=== PATIENT | male | born 1990 | race Caucasian/White ===

== ENCOUNTER 2017-11-04 02:28 | Emergency (ER) | payer SELFPAY ==
[2017-11-04 02:30] VITALS: BP 115/78
[2017-11-04] MEDS ORDERED: ONDANSETRON 4 MG ODT TABDP SL ONE (02:30)
--- NOTE | 2017-11-04 02:38 | ER Report ---
History and Physical Time Seen By MD: 02:31 Hx. of Stated Complaint: PATIENT BROUGHT IN BY [employer] FOR GROUP HOME CLEARENCE, PATIENT FOUND LAYING RUNK ON SIDE WALK VOMITING. HPI/ROS CHIEF COMPLAINT: Medical clearance HISTORY OF PRESENT ILLNESS: Patient is a 26-year-old male who is brought in by [place] [employer] for medical clearance. Patient was found lying on the sidewalk vomiting. Admits to drinking quite a bit of alcohol this evening. Patient denies hitting his head. Past medical history for spinal fusion in the past. REVIEW OF SYSTEMS: Respiratory: No cough, no dyspnea. Cardiovascular: No chest pain, no palpitations. Gastrointestinal: Vomiting, denies abdominal pain Musculoskeletal: No back pain. Allergies: Coded Allergies: morphine (Verified Allergy, Unknown, 11/04/17) Home Meds No Active Prescriptions or Reported Meds Past Medical/Surgical History History of back surgery Physical Exam General Appearance: The patient is alert, has no immediate need for airway protection and no current signs of toxicity. He shouldn't is acutely intoxicated Eyes: Pupils equal and round no injection. Fatigable horizontal nystagmus Respiratory: Chest is non tender, lungs are clear to auscultation. Cardiac: regular rate and rhythm Gastrointestinal: Abdomen is soft and non tender, no masses, bowel sounds normal. Musculoskeletal: Neck: Neck is supple and non tender. Extremities have full range of motion and are non tender. Skin: No rashes or lesions. Medical Decision Making ED Course/Re-evaluation ED Course 11/04/2017 2:36:40 am patient medically cleared at this time; he was offered antinausea medicines which he refused. Decision to Disposition Date: Nov 04, 2017 Decision to Disposition Time: 02:36 Depart Departure Impression: Primary Impression: Alcohol intoxication Condition: Improved Disposition: HOME OR SELF-CARE New Scripts No Active Prescriptions or Reported Meds Patient Instructions: Alcohol Intoxication (ED) Problem Qualifiers Primary Impression: Alcohol intoxication Complication of substance-induced condition: uncomplicated Qualified Codes: F10.920 - Alcohol use, unspecified with intoxication, uncomplicated MONSERRAT VILLA MD Nov 04, 2017 02:37
== END 2017-11-04 02:43 ==
LOC: ER 02:30
DX: F10.920 Alcohol use, unspecified with intoxication, uncomplicated (principal)
CPT/HCPCS: 99281

== ENCOUNTER 2017-12-02 09:04 | Emergency (ER) | payer OTHER ==
--- NOTE | 2017-12-02 09:11 | ER Report ---
History and Physical Time Seen By MD: 09:11 Hx. 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 PAIN TO FOREARM. HPI/ROS CHIEF COMPLAINT: forearm pain HISTORY OF PRESENT ILLNESS: This is a 26 year old male. He injured his left forearm yesterday afternoon when working. Was running an auger, put the equipment back down in the hole, and started up prior to being set, twisting his left arm severely. Had severe pain. No numbness. Normal motor function. No pain in elbow or wrist. Allergies: Coded Allergies: tramadol (Verified Allergy, Mild, CONSTIPATION, 12/02/17) morphine (Verified Allergy, Unknown, 11/04/17) Home Meds No Active Prescriptions or Reported Meds Reviewed Nurses Notes: Yes Constitutional Vital Sign - Last 24 Hours 12/02/17 12/02/17 09:07 10:37 Temp 97.6 Pulse 75 65 Resp 18 18 B/P (MAP) 133/82 123/86 (98) Pulse Ox 95 94 O2 Delivery Room Air Physical Exam General: Alert, no acute distress. Musculoskeletal: Pain in mid forearm over ulna. No pain in elbow. No pain in wrist. Skin: No rashes or skin breakdown. Cardiovascular: Normal pulses and cap refill. Neuro: Normal sensation. Medical Decision Making EKG/Imaging Imaging FOREARM LEFT Indication: Pain after injury Comparison: None available Findings: Two views of the left forearm show no evidence of fracture, dislocation, or acute osseous abnormality. There is no focal soft tissue abnormality. No evidence of radiopaque foreign body. IMPRESSION: 1.No acute osseous abnormality left forearm Report Dictated By: Alek Moore at 12/02/2017 10:21 AM ED Course/Re-evaluation ED Course Reviewed results with the patient and discussed conservative measures. Decision to Disposition Date: Dec 02, 2017 Decision to Disposition Time: 10:29 Depart Departure Latest Vital Signs Vital Signs Date Time Temp Pulse Resp B/P (MAP) Pulse Ox O2 Delivery O2 Flow Rate FiO2 12/02/17 10:37 65 18 123/86 (98) 94 12/02/17 09:07 97.6 Room Air Impression: Primary Impression: Strain of forearm, left Condition: Stable Disposition: HOME OR SELF-CARE New Scripts No Active Prescriptions or Reported Meds Patient Instructions: Muscle Strain (ED) Additional Instructions: Ibuprofen 200mg over the counter tablets, take 4 tablets three times a day with food. Apply ice 20 minutes every 1-2 hours while awake. An DIXIE wrap can be used for compression to help reduce swelling. Rest the injured area, keep it elevated while at rest. Begin gentle range of motion exercises. Okay to use the arm, let pain be your guide and be careful not to overuse it for the next few days till it is feeling better. Problem Qualifiers Primary Impression: Strain of forearm, left Encounter type: initial encounter Qualified Codes: S56.912A - Strain of unspecified muscles, fascia and tendons at forearm level, left arm, initial encounter FELIX MEADE MD Dec 02, 2017 09:11
--- NOTE | 2017-12-02 10:25 | RADIOLOGY IMAGING REPORT ---
FACILITY: [facility] PATIENT NAME: Mendel Pimentel : 1990 MR: [id number] V: [id number] EXAM DATE: ORDERING PHYSICIAN: FELIX MEADE TECHNOLOGIST: Location: [facility] - [place] Patient: Mendel Pimentel : 1990 Visit/Account:[id number] Date of Sevice: 12/02/2017 FOREARM LEFT Indication: Pain after injury Comparison: None available Findings: Two views of the left forearm show no evidence of fracture, dislocation, or acute osseous abnormality . There is no focal soft tissue abnormality. No evidence of radiopaque foreign body. IMPRESSION: 1.No acute osseous abnormality left forearm Report Dictated By: Alek Moore at 12/02/2017 10:21 AM Report E-Signed By: Alek Moore at 12/02/2017 10:21 AM WSN:[id number]
[2017-12-02 10:37] VITALS: BP 123/86
== END 2017-12-02 10:38 | disposition home or self-care (01) ==
LOC: ER 09:07
DX: S56.912A Strain of unspecified muscles, fascia and tendons at forearm level, left arm, initial encounter (principal); X50.1XXA Overexertion from prolonged static or awkward postures, initial encounter
CPT/HCPCS: 99283